=== PATIENT | female | born 1970 | race Caucasian/White ===

== ENCOUNTER 2022-02-03 10:17 | Day surgery (SDC) | payer MEDICAID ==
[~2022-02-03] VITALS: Ht 175.3 cm; Wt 163.6 kg
[~2022-02-03 10:17] MED LIST: SODIUM CHLORIDE 0.9% 1,000 ML ONE
[2022-02-03] MEDS ORDERED: SODIUM CHLORIDE 0.9% 1,000 ML IV ONE (10:30)
[2022-02-03 10:41] LABS: COVID AG,FIA SOURCE NASAL SWAB
[2022-02-03 11:16] LABS: GLUCOMETER DEV NAME(LOC) SDS.; GLUCOSE,POINT OF CARE 103 MG/DL (70-110)
[2022-02-03] MEDS ORDERED: ATOR-2 PO (11:17)
[2022-02-03] MEDS ORDERED: LAMO100 PO (11:17)
[2022-02-03] MEDS ORDERED: IBUP-2077 PO (11:17)
[2022-02-03] MEDS ORDERED: METF-446 PO (11:17)
[2022-02-03] MEDS ORDERED: METO100T14 PO (11:17)
[2022-02-03] MEDS ORDERED: LOSA100T58 PO (11:17)
[2022-02-03] MEDS ORDERED: INSU100I26 SQ (11:18)
[2022-02-03] MEDS ORDERED: PARO-37 PO (11:18)
[2022-02-03] MEDS ORDERED: AMLO10TA55 PO (11:18)
[2022-02-03] MEDS ORDERED: MULT-660 PO (11:18)
[2022-02-03] MEDS ORDERED: GLIM2TAB30 PO (11:18)
[2022-02-03] MEDS ORDERED: FURO40TA5 PO (11:18)
[2022-02-03] MEDS ORDERED: TRAM50TA4 PO (11:18)
[2022-02-03] MEDS ORDERED: LIDOCAINE/PF 2% 5 ML VIAL IM ONE (12:00)
[2022-02-03] MEDS ORDERED: PROPOFOL 1% 20 ML VIAL IVP ONE (12:00)
== END 2022-02-03 14:30 | disposition home or self-care (01) ==
LOC: SURGERY 10:17
PROVIDERS: ATTEND Internal Medicine Gastroenterology
DX: Z12.11 Encounter for screening for malignant neoplasm of colon (principal); D12.3 Benign neoplasm of transverse colon; D12.5 Benign neoplasm of sigmoid colon; K64.8 Other hemorrhoids; E11.9 Type 2 diabetes mellitus without complications; E66.01 Morbid (severe) obesity due to excess calories; Z83.3 Family history of diabetes mellitus; Z82.49 Family history of ischemic heart disease and other diseases of the circulatory system; I10 Essential (primary) hypertension; E66.9 Obesity, unspecified; Z80.6 Family history of leukemia; Z98.890 Other specified postprocedural states; Z79.899 Other long term (current) drug therapy; Z91.018 Allergy to other foods
CPT/HCPCS: 45385; 87426; 82962; 88305; C1769; J2704; J3490; J7030; C9803